=== PATIENT | female | born 1935 | race Caucasian/White ===

== ENCOUNTER 2018-12-03 20:59 | Emergency (ER) | payer OTHER ==
[~2018-12-03] VITALS: Ht 152.4 cm; Wt 72.6 kg
[~2018-12-03 20:59] MED LIST: COZ50 PO; MULT-1398 PO; SIMV20TA1 PO
[2018-12-03 21:44] VITALS: BP 184/88
--- NOTE | 2018-12-03 21:47 | NUR ---
PT AMBULATED TO LOBBY WITH VSS.
--- NOTE | 2018-12-03 22:52 | NUR ---
PT TO ED WITH C[facility]. SMALL HEMATOMA NOTED TO FOREHEAD. FALL AT [facility]. TRIPPED OVER CARPET. DENIES ALOC. DENIES N/V. PT DENIES USE OF BLOOD THINNERS. PT IS ALERT TO NAME, BIRTHDAY, PLACE, AND EVENT. PT PLACED INTO BED, PENDING MD TABOR.
[2018-12-03 23:25] VITALS: BP 156/74
--- NOTE | 2018-12-03 23:25 | NUR ---
Patient discharged with v/s stable. Written and verbal after care instructions given and explained. Patient verbalized understanding. Ambulatory with steady gait. All questions addressed prior to discharge. Advised to follow up with PMD.
== END 2018-12-03 23:25 | disposition home or self-care (01) ==
LOC: MED 20:59
DX: S00.83XA Contusion of other part of head, initial encounter (principal); E11.9 Type 2 diabetes mellitus without complications; I10 Essential (primary) hypertension; Z86.73 Personal history of transient ischemic attack (TIA), and cerebral infarction without residual deficits; Z79.899 Other long term (current) drug therapy; W18.09XA Striking against other object with subsequent fall, initial encounter; Y93.01 Activity, walking, marching and hiking; Y92.009 Unspecified place in unspecified non-institutional (private) residence as the place of occurrence of the external cause; Y99.8 Other external cause status
CPT/HCPCS: 70450; 99284

== ENCOUNTER 2019-02-14 20:21 | Emergency (ER) | payer OTHER ==
[~2019-02-14] VITALS: Ht 152.4 cm; Wt 71.2 kg
[2019-02-14 20:22] VITALS: BP 176/87
--- NOTE | 2019-02-14 20:28 | NUR ---
PT AMBULATED TO BED 12 WITH FAMILY
--- NOTE | 2019-02-14 20:35 | NUR ---
c/o lower back pain x4 days , denied n/v/d/fever, injury,dysuria, urinary frequency. no obvious deformities/bruising.
--- NOTE | 2019-02-14 20:36 | NUR ---
RADIOLOGY BED SIDE
--- NOTE | 2019-02-14 20:52 | NUR ---
DR. KAISER EVALUATING PT BEDSIDE
[2019-02-14] MEDS ORDERED: IBUPROFEN 600 MG TAB PO ONE (21:40)
[2019-02-14] MEDS ORDERED: ACETAMINOPHEN EXTRA STRENGTH 500 MG TAB PO ONE (21:50)
--- NOTE | 2019-02-14 22:14 | NUR ---
EMT AT PT BEDSIDE DOING SLINT. ER MADE AWARE
--- NOTE | 2019-02-14 22:18 | NUR ---
ASSESSED SLINT ON PT RIGHT ARM. PT FINGERS ARE WARM TO TOUCH, CAPILLARY REFILL IS 2+. DENIES NUMBNESS OR TINGLING. ER MADE AWARE. PENDING DC
[2019-02-14 22:20] VITALS: BP 176/87
--- NOTE | 2019-02-14 22:20 | NUR ---
Patient discharged with v/s stable. Written and verbal after care instructions given and explained. Patient is alert, oriented and verbalized understanding of instructions. Ambulatory with steady gait. pt tolerated the sling and splint on the right side and denied pain at d/c. All questions addressed prior to discharge. ID band removed. Patient advised to follow up with PMD. Rx of TYLEOL WAS given. Patient educated on indication of medication including possible reaction and side effects. Opportunity to ask questions provided and answered.
== END 2019-02-14 22:20 | disposition home or self-care (01) ==
LOC: MED 20:21
DX: S52.501A Unspecified fracture of the lower end of right radius, initial encounter for closed fracture (principal); E11.9 Type 2 diabetes mellitus without complications; I10 Essential (primary) hypertension; Z90.49 Acquired absence of other specified parts of digestive tract; Z86.73 Personal history of transient ischemic attack (TIA), and cerebral infarction without residual deficits; Z79.899 Other long term (current) drug therapy; W01.0XXA Fall on same level from slipping, tripping and stumbling without subsequent striking against object, initial encounter; Y93.89 Activity, other specified; Y92.89 Other specified places as the place of occurrence of the external cause; Y99.8 Other external cause status
CPT/HCPCS: 29125; 73110; 99283; Q0092